=== PATIENT | male | born 1995 | race African-American/Black ===

== ENCOUNTER 2024-11-27 13:14 | Emergency (ER) | payer MEDICAID, OTHER ==
[~2024-11-27] VITALS: Ht 185.4 cm; Wt 77.0 kg
[2024-11-27 13:24] VITALS: O2SAT 100
[2024-11-27 15:48] VITALS: BP 124/45; PULSE 60; RESP 12; TEMP 36.7; O2SAT 100
== END 2024-11-27 15:52 | disposition home or self-care (01) ==
LOC: ER 13:14
DX: S22.31XA Fracture of one rib, right side, initial encounter for closed fracture (principal); X58.XXXA Exposure to other specified factors, initial encounter; Y93.75 Activity, martial arts; Y92.89 Other specified places as the place of occurrence of the external cause; Y99.8 Other external cause status
CPT/HCPCS: 71101; 99283